=== PATIENT | female | born 1980 | race Caucasian/White ===

== ENCOUNTER 2016-07-18 20:58 | Emergency (ER) | payer OTHER ==
[~2016-07-18] VITALS: Ht 162.6 cm; Wt 89.3 kg
[2016-07-18] MEDS ORDERED: methylPREDNISolone INJ 125 MG/2 ML VIAL (J2930) As Ordered ONE (22:49)
[2016-07-18] MEDS ORDERED: hydrOXYzine 50 MG TAB PO SCH (23:00)
--- NOTE | 2016-07-18 23:15 | EDDOCDS ---
Nurse's Notes [facility] Name: Rebecca Valerio Age: 35 yrs Sex: Female : 1980 Arrival Date: 07/18/2016 Time: 20:58 Bed Triage 3 Private MD: Diagnosis: Rash and other nonspecific skin eruption-left forearm Presentation: 07/18 21:08 Presenting complaint: Patient states: itching in bilateral arms and neck for two weeks. rs3 Tried benadryl and anti itch cream OTC with no relief. Adult Sepsis Screening: The patient does not have new or worsening altered mentation. Patient's respiratory rate is less than 22. Systolic blood pressure is greater than 100. Patient has a qSOFA score of 0- Negative Sepsis Screen. Suicide/Homicide risk assessment- the patient denies having any suicidal and/or homicidal ideations and does not present with any other emotional, behavioral or mental health complaints. Status: The patient is a dependent. Transition of care: patient was not received from another setting of care. 21:08 Acuity: ROBERT Level 4 rs3 21:08 Method Of Arrival: Walkin/Carried/Asstd rs3 Triage Assessment: 21:11 General: Appears in no apparent distress. Pain: Denies pain. Pt Declines HIV testing. 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 Vitamin B-12 Oral injections monthly - PMHx: none; - PSHx: Gastric Bypass; D & C; - Social history: Smoking status: Patient states was never smoker of tobacco. No barriers to communication noted, The patient speaks fluent Albanian. - Family history: Not pertinent. - : The pt / caregiver states he / she is not on anticoagulants. Home medication list is obtained from the patient. - Exposure Risk Screening:: None identified. Screenin:12 Screening information is obtained from the patient. Fall risk: No risks identified. jmb Assistance ADL's: requires no assistance with activities of daily living. Abuse/DV Screen: The patient / caregiver reports he/she is: not in a situation that causes fear, pain or injury. Nutritional screening: No deficits noted. Advance Directives: Currently, there is no health care proxy. There is no active DNR order. There is no living will. 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 home support is adequate. Assessment: 23:12 General: Patient instructed on discharge instructions. Patient asked if there were any jmb questions regarding discharge, patient stated no. Patient signed discharge instructions. Patient discharged in stable condition. . Vital Signs: 20:59 BP 138 / 75; Pulse 79; Resp 18; Temp 96.4; Pulse Ox 98% ; Weight 89.27 kg (M); Height 5 kb5 ft. 4 in. (162.56 cm) (R); Pain 9/10; 23:12 BP 130 / 70; Pulse 80; Resp 18; Temp 97.8(O); Pulse Ox 98% on R/A; Pain 0/10; jmb 20:59 Body Mass Index 33.78 (89.27 kg, 162.56 cm) kb5 Vitals: 20:59 Log In Time: July 18, 2016 at 20:45. kb5 ED Course: 20:59 Patient visited by Ty Humphreys PCA. kb5 20:59 Patient moved to Waiting kb5 21:09 Triage Initiated rs3 21:11 Patient moved to Pre RCE rs3 22:09 Patient moved to Triage 3 nn1 22:25 [facility] cc10 22:25 Darian Aden DO is Attending Physician. cc10 22:25 Patient visited by Chester Peter PA-C. cc10 22:25 Patient visited by Chester Peter PA-C. cc10 23:12 The patient / caregiver is instructed regarding the plan of care and ED course. jmb 23:12 No IV's were initiated during this patient's visit. No procedures done that require jmb assistance. Administered Medications: 22:59 Drug: methylPREDNISolone Sodium Succinate 125 mg [methylprednisolone sodium succ 125 mg jmb solution for injection (125 mg)] Route: IM; Site: left deltoid; 23:12 Drug: hydrOXYzine 50 mg [hydroxyzine HCl 25 mg tablet (2 tabs)] Route: PO; jmb Order Results: There are currently no results for this order. Outcome: 22:46 Discharge ordered by Provider. cc10 23:12 Discharge Assessment: Patient awake, alert and oriented x 3. No cognitive and/or jmb functional deficits noted. Patient verbalized understanding of disposition instructions. Patient awake and alert. obeys commands, Oriented to person, place and time. Patient verbalized understanding of disposition instructions. Patient has no functional deficits. patient administered narcotics - no. The following High Risk Discharge criteria are identified: None. Discharged to home ambulatory, with significant other. Condition: stable Condition: improved. Discharge instructions given to patient, Instructed on discharge instructions, follow up and referral plans. medication usage, Demonstrated understanding of instructions, medications, Pt was receptive of discharge instructions/ teaching. Prescriptions given X 2. No special radiology studies were completed. Property sent home with patient. 23:14 Patient left the ED. emerita Signatures: Ty Humphreys, CLAIMS ADJUDICATOR CLAIMS ADJUDICATOR kb5 Kati Alfaro,RN RN rs3 Thor BarbosaRN RN Chester Chen, PA-C PA-C cc10 Rachael Miles,RN RN nn1 FRANCK
--- NOTE | 2016-07-18 23:15 | EDDOCDS ---
Physician Documentation [facility] Name: Rebecca Valerio Age: 35 yrs Sex: Female : 1980 Arrival Date: 07/18/2016 Time: 20:58 Bed Triage 3 Private MD: Disposition: 07/18/16 22:46 Discharged to Home/Self Care. Impression: Rash and other nonspecific skin eruption - left forearm. - Condition is Stable. - Discharge Instructions: Rash, Pruritus. - Prescriptions for Hydroxyzine HCl 50 mg Oral Tablet - take 1 tablet by ORAL route every 8 hours As needed; 20 tablet. prednisolone 15 mg/5 mL Oral Solution - take 10 milliliter by ORAL route 2 times per day Take with food.; 80 milliliter. - Medication Reconciliation, Local Pharmacy Hours form. - Follow up: Private Physician; When: Call to arrange an appointment; Reason: Wound/Symptom Recheck, Recheck today's complaints, Continuance of care. - Problem is an ongoing problem. - Symptoms are unchanged. Historical: - Allergies: Morphine (Rash); - Home Meds: 1. Vitamin B-12 Oral injections monthly - PMHx: none; - PSHx: Gastric Bypass; D & C; - Social history: Smoking status: Patient states was never smoker of tobacco. No barriers to communication noted, The patient speaks fluent Algerian. - Family history: Not pertinent. - : The pt / caregiver states he / she is not on anticoagulants. Home medication list is obtained from the patient. - Exposure Risk Screening:: None identified. 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 4 in. (162.56 cm) (R); Pain 9/10; 23:12 BP 130 / 70; Pulse 80; Resp 18; Temp 97.8(O); Pulse Ox 98% on R/A; Pain 0/10; jmb 20:59 Body Mass Index 33.78 (89.27 kg, 162.56 cm) kb5 MDM: 22:45 hydrOXYzine 50 mg PO once ordered. cc10 22:45 methylPREDNISolone Sodium Succinate 125 mg IM once ordered. cc10 Administered Medications: 22:59 Drug: methylPREDNISolone Sodium Succinate 125 mg [methylprednisolone sodium succ 125 mg jmb solution for injection (125 mg)] Route: IM; Site: left deltoid; 23:12 Drug: hydrOXYzine 50 mg [hydroxyzine HCl 25 mg tablet (2 tabs)] Route: PO; emerita Signatures: Kati Alfaro RN RN rs3 Thor Barbosa RN RN jmb Chester Peter, PALisaC PALisaC cc10 MTDD
--- NOTE | 2016-07-21 00:15 | EDDOCDS ---
Physician Documentation [facility] Name: Rebecca Valerio Age: 35 yrs Sex: Female : 1980 Arrival Date: 07/18/2016 Time: 20:58 Bed Triage 3 Private MD: Disposition: 07/18/16 22:46 Discharged to Home/Self Care. Impression: Rash and other nonspecific skin eruption - left forearm. - Condition is Stable. - Discharge Instructions: Rash, Pruritus. - Prescriptions for Hydroxyzine HCl 50 mg Oral Tablet - take 1 tablet by ORAL route every 8 hours As needed; 20 tablet. prednisolone 15 mg/5 mL Oral Solution - take 10 milliliter by ORAL route 2 times per day Take with food.; 80 milliliter. - Medication Reconciliation, Local Pharmacy Hours form. - Follow up: Private Physician; When: Call to arrange an appointment; Reason: Wound/Symptom Recheck, Recheck today's complaints, Continuance of care. - Problem is an ongoing problem. - Symptoms are unchanged. Historical: - Allergies: Morphine (Rash); - Home Meds: 1. Vitamin B-12 Oral injections monthly - PMHx: none; - PSHx: Gastric Bypass; D & C; - Social history: Smoking status: Patient states was never smoker of tobacco. No barriers to communication noted, The patient speaks fluent Guinean. - Family history: Not pertinent. - : The pt / caregiver states he / she is not on anticoagulants. Home medication list is obtained from the patient. - Exposure Risk Screening:: None identified. 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 4 in. (162.56 cm) (R); Pain 9/10; 23:12 BP 130 / 70; Pulse 80; Resp 18; Temp 97.8(O); Pulse Ox 98% on R/A; Pain 0/10; jmb 20:59 Body Mass Index 33.78 (89.27 kg, 162.56 cm) kb5 MDM: 22:45 hydrOXYzine 50 mg PO once ordered. cc10 22:45 methylPREDNISolone Sodium Succinate 125 mg IM once ordered. cc10 07/19 10:04 T-Sheet-- Draft Copy was scanned into [employer] and attached to record. gb Administered Medications: 07/18 22:59 Drug: methylPREDNISolone Sodium Succinate 125 mg [methylprednisolone sodium succ 125 mg jmb solution for injection (125 mg)] Route: IM; Site: left deltoid; 23:12 Drug: hydrOXYzine 50 mg [hydroxyzine HCl 25 mg tablet (2 tabs)] Route: PO; emerita Signatures: Liz Baron, Reg Reg gb Kati Alfaro,RN RN rs3 Thor Barbosa RN RN corinnab Chester Peter, PA-C PA-C cc10 The chart was reviewed and I authenticate all verbal orders and agree with the evaluation and treatment provided.Attachments: 07/19 10:04 T-Sheet-- Draft Copy gb Chart Complete MTDD
--- NOTE | 2016-07-21 00:15 | EDDOCDS ---
Nurse's Notes [facility] Name: Rebecca Valerio Age: 35 yrs Sex: Female : 1980 Arrival Date: 07/18/2016 Time: 20:58 Bed Triage 3 Private MD: Diagnosis: Rash and other nonspecific skin eruption-left forearm Presentation: 07/18 21:08 Presenting complaint: Patient states: itching in bilateral arms and neck for two weeks. rs3 Tried benadryl and anti itch cream OTC with no relief. Adult Sepsis Screening: The patient does not have new or worsening altered mentation. Patient's respiratory rate is less than 22. Systolic blood pressure is greater than 100. Patient has a qSOFA score of 0- Negative Sepsis Screen. Suicide/Homicide risk assessment- the patient denies having any suicidal and/or homicidal ideations and does not present with any other emotional, behavioral or mental health complaints. Status: The patient is a dependent. Transition of care: patient was not received from another setting of care. 21:08 Acuity: ROBERT Level 4 rs3 21:08 Method Of Arrival: Walkin/Carried/Asstd rs3 Triage Assessment: 21:11 General: Appears in no apparent distress. Pain: Denies pain. Pt Declines HIV testing. 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 Vitamin B-12 Oral injections monthly - PMHx: none; - PSHx: Gastric Bypass; D & C; - Social history: Smoking status: Patient states was never smoker of tobacco. No barriers to communication noted, The patient speaks fluent Georgian. - Family history: Not pertinent. - : The pt / caregiver states he / she is not on anticoagulants. Home medication list is obtained from the patient. - Exposure Risk Screening:: None identified. Screenin:12 Screening information is obtained from the patient. Fall risk: No risks identified. jmb Assistance ADL's: requires no assistance with activities of daily living. Abuse/DV Screen: The patient / caregiver reports he/she is: not in a situation that causes fear, pain or injury. Nutritional screening: No deficits noted. Advance Directives: Currently, there is no health care proxy. There is no active DNR order. There is no living will. There is no Power of [place]. home support is adequate. Assessment: 23:12 General: Patient instructed on discharge instructions. Patient asked if there were any jmb questions regarding discharge, patient stated no. Patient signed discharge instructions. Patient discharged in stable condition. . Vital Signs: 20:59 BP 138 / 75; Pulse 79; Resp 18; Temp 96.4; Pulse Ox 98% ; Weight 89.27 kg (M); Height 5 kb5 ft. 4 in. (162.56 cm) (R); Pain 9/10; 23:12 BP 130 / 70; Pulse 80; Resp 18; Temp 97.8(O); Pulse Ox 98% on R/A; Pain 0/10; jmb 20:59 Body Mass Index 33.78 (89.27 kg, 162.56 cm) kb5 Vitals: 20:59 Log In Time: July 18, 2016 at 20:45. kb5 ED Course: 20:59 Patient visited by Ty Humphreys PCA. kb5 20:59 Patient moved to Waiting kb5 21:09 Triage Initiated rs3 21:11 Patient moved to Pre RCE rs3 22:09 Patient moved to Triage 3 nn1 22:25 Chester Peter PA-C is PHCP. cc10 22:25 Darian Aden DO is Attending Physician. cc10 22:25 Patient visited by Chester Peter PA-C. cc10 22:25 Patient visited by Chester Peter PA-C. cc10 23:12 The patient / caregiver is instructed regarding the plan of care and ED course. jmb 23:12 No IV's were initiated during this patient's visit. No procedures done that require jmb assistance. 07/19 10:04 T-Sheet-- Draft Copy was scanned into [employer] and attached to record. gb Administered Medications: 07/18 22:59 Drug: methylPREDNISolone Sodium Succinate 125 mg [methylprednisolone sodium succ 125 mg jmb solution for injection (125 mg)] Route: IM; Site: left deltoid; 23:12 Drug: hydrOXYzine 50 mg [hydroxyzine HCl 25 mg tablet (2 tabs)] Route: PO; jmb Order Results: There are currently no results for this order. Outcome: 22:46 Discharge ordered by Provider. cc10 23:12 Discharge Assessment: Patient awake, alert and oriented x 3. No cognitive and/or jmb functional deficits noted. Patient verbalized understanding of disposition instructions. Patient awake and alert. obeys commands, Oriented to person, place and time. Patient verbalized understanding of disposition instructions. Patient has no functional deficits. patient administered narcotics - no. The following High Risk Discharge criteria are identified: None. Discharged to home ambulatory, with significant other. Condition: stable Condition: improved. Discharge instructions given to patient, Instructed on discharge instructions, follow up and referral plans. medication usage, Demonstrated understanding of instructions, medications, Pt was receptive of discharge instructions/ teaching. Prescriptions given X 2. No special radiology studies were completed. Property sent home with patient. 23:14 Patient left the ED. corinnab Signatures: Liz Baron, Reg Reg gb Ty Humphreys, BUSINESS ANALYSIS SPECIALIST BUSINESS ANALYSIS SPECIALIST kb5 Kati Alfaro,RN RN rs3 Thor Barbosa RN RN Chester Chen, PA-C PA-C cc10 Rachael Miles,RN RN nn1 Chart Complete MTDD
--- NOTE | 2016-07-21 00:15 | EDDOCDS ---
Physician Documentation [facility] Name: Rebecca Valerio Age: 35 yrs Sex: Female : 1980 Arrival Date: 07/18/2016 Time: 20:58 Bed Triage 3 Private MD: Disposition: 07/18/16 22:46 Discharged to Home/Self Care. Impression: Rash and other nonspecific skin eruption - left forearm. - Condition is Stable. - Discharge Instructions: Rash, Pruritus. - Prescriptions for Hydroxyzine HCl 50 mg Oral Tablet - take 1 tablet by ORAL route every 8 hours As needed; 20 tablet. prednisolone 15 mg/5 mL Oral Solution - take 10 milliliter by ORAL route 2 times per day Take with food.; 80 milliliter. - Medication Reconciliation, Local Pharmacy Hours form. - Follow up: Private Physician; When: Call to arrange an appointment; Reason: Wound/Symptom Recheck, Recheck today's complaints, Continuance of care. - Problem is an ongoing problem. - Symptoms are unchanged. Historical: - Allergies: Morphine (Rash); - Home Meds: 1. Vitamin B-12 Oral injections monthly - PMHx: none; - PSHx: Gastric Bypass; D & C; - Social history: Smoking status: Patient states was never smoker of tobacco. No barriers to communication noted, The patient speaks fluent Gabonese. - Family history: Not pertinent. - : The pt / caregiver states he / she is not on anticoagulants. Home medication list is obtained from the patient. - Exposure Risk Screening:: None identified. 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 4 in. (162.56 cm) (R); Pain 9/10; 23:12 BP 130 / 70; Pulse 80; Resp 18; Temp 97.8(O); Pulse Ox 98% on R/A; Pain 0/10; jmb 20:59 Body Mass Index 33.78 (89.27 kg, 162.56 cm) kb5 MDM: 22:45 hydrOXYzine 50 mg PO once ordered. cc10 22:45 methylPREDNISolone Sodium Succinate 125 mg IM once ordered. cc10 07/19 10:04 T-Sheet-- Draft Copy was scanned into [employer] and attached to record. gb Administered Medications: 07/18 22:59 Drug: methylPREDNISolone Sodium Succinate 125 mg [methylprednisolone sodium succ 125 mg jmb solution for injection (125 mg)] Route: IM; Site: left deltoid; 23:12 Drug: hydrOXYzine 50 mg [hydroxyzine HCl 25 mg tablet (2 tabs)] Route: PO; emerita Signatures: Liz Baron, Reg Reg gb Kati Alfaro,RN RN rs3 Thor Barbosa RN RN corinnab Chester Peter, PA-C PA-C cc10 The chart was reviewed and I authenticate all verbal orders and agree with the evaluation and treatment provided.Attachments: 07/19 10:04 T-Sheet-- Draft Copy gb Chart Complete MTDD
== END 2016-07-18 23:14 | disposition home or self-care (01) ==
LOC: M ED 20:58
DX: L29.9 Pruritus, unspecified (principal); Z98.84 Bariatric surgery status; Z79.899 Other long term (current) drug therapy; Z88.5 Allergy status to narcotic agent
CPT/HCPCS: 96372; 99283; J2930